=== PATIENT | male | born 1950 | race Caucasian/White ===

== ENCOUNTER → 2020-04-12 | Outpatient (CLI) | payer BC ==
[2015-01-16 08:40] VITALS: BP 159/80
--- NOTE | 2020-04-12 16:36 | KCIC ---
PA and lateral views of the chest. Comparison: None. Indication: Bronchitis and bronchospasm Findings: The heart size is normal. No pneumothorax or effusion. Bilaterally there are coarse interstitial pulmonary markings. The bony structures are intact. Impression: 1. Coarse bilateral pulmonary interstitial markings consistent with stated history of bronchitis. Electronically signed by: Esau Paez MD (04/12/2020 4:33 PM) [id number]
== END | disposition home or self-care (01) ==
LOC: KCIC 15:46
PROVIDERS: ATTEND Family Medicine
DX: J20.9 Acute bronchitis, unspecified (principal)
CPT/HCPCS: 71046